=== PATIENT | female | born 1975 | race Caucasian/White ===

== ENCOUNTER → 2019-05-14 | Outpatient (CLI) | payer OTHER ==
--- NOTE | 2019-05-14 13:38 | RAD ---
Examination: BREAST RIGHT History: Nonhealing right breast wound Comparison/Correlation: None Findings: Limited ultrasound imaging of the right breast was performed. Imaging was performed without the retroareolar region especially at the 6:00 region where a wound is reported to be present. At the 6:00 region 1 cm from the nipple, there is a 1.4 cm x 0.8 cm x 0.4 cm tall hypoechoic region noted. There is no loculated collection identified. Impression: Hypoechoic region deep to the skin at the site of the reported wound. This appears represent edematous soft tissues. No loculated collection. Electronically signed by: Pérez Velasquez MD (05/14/2019 1:35 PM) [facility]
== END | disposition home or self-care (01) ==
LOC: US 10:41
PROVIDERS: ATTEND Preventive Medicine Undersea and Hyperbaric Medicine
DX: S21.001A Unspecified open wound of right breast, initial encounter (principal); X58.XXXA Exposure to other specified factors, initial encounter; Y93.89 Activity, other specified; Y92.89 Other specified places as the place of occurrence of the external cause; Y99.8 Other external cause status
CPT/HCPCS: 76641